=== PATIENT | male | born 1985 | race Caucasian/White ===

== ENCOUNTER 2021-02-26 07:00 | Emergency (ER) | payer OTHER, SELFPAY ==
--- NOTE | ~2021-02-26 | XR_ITS ---
EXAMINATION: XR CHEST CLINICAL INFORMATION: Cough and SOB. COMPARISON: None TECHNIQUE: Frontal view of the chest was obtained. FINDINGS: No significant abnormality is noted involving the heart, lungs, mediastinum, bony thorax or soft tissues. XR/XR chest 1V IMPRESSION: Unremarkable chest examination.
[2021-02-26 07:03] VITALS: BP 138/94; PULSE 91; RESP 18; TEMP 36.9; O2SAT 98; BMI 30.4
--- NOTE | 2021-02-26 07:22 | ED.ASTHMA ---
HPI - Asthma General Chief Complaint: Asthma Stated Complaint: DIFF BREATHING ASTHMA Time Seen by Provider: 02/26/21 07:22 Source: patient Mode of arrival: ambulatory Limitations: no limitations History of Present Illness HPI Narrative: 35-year-old male with a past medical history of asthma, and IV heroin use presents to the emergency department with 3 days of a productive cough. He states the cough is worse at night, and better during the day. He also states it is worse with heroin use. He reports shortness of breath, and states he has been using his rescue inhaler often and he states that yesterday he had to use his daughters nebulizer (albuterol). He states that the symptoms have been progressively worsening over the past 3 days. He also reports chest discomfort, only associated with his cough. He denies abdominal pain, fevers, chills, recent sick contacts, changes in bowel habits, weakness, headaches. MD complaint: asthma attack and shortness of breath Onset (ago): day(s) (3) Severity: mild Associated symptoms: productive cough Related Data Previous Rx's Medication Instructions Recorded albuterol sulfate 90 mcg/actuation 2 inh INHALATION QID PRN 90 Days 02/20/21 aerosol inhaler (ProAir HFA) #8.5 g albuterol sulfate 90 mcg/actuation 2 puff INHALATION QID PRN #6.7 g 02/26/21 aerosol inhaler benzonatate 100 mg capsule 100 mg PO TID 5 Days #15 cap 02/26/21 (Milagros Prater) prednisone 20 mg tablet 60 mg PO DAILY 4 Days #12 tab 02/26/21 Allergies Allergy/AdvReac Type Severity Reaction Status Date / Time No Known Allergies Allergy Unverified 02/17/20 15:26 Review of Systems Review of Systems: Constitutional : No Fever, No Chills ENT/Mouth : positive oral swelling, No Hoarseness, No Swallowing Difficulty Cardiovascular : No Chest Pain, No SOB Respiratory : + Cough, + Sputum, No Wheezing, No Smoke Exposure, + Dyspnea/SOB Gastrointestinal : No Nausea, No Vomiting, No Diarrhea, No abdominal Pain Genitourinary : No Dysuria, No Urinary Frequency, No Hematuria Musculoskeletal : No joint pain, No Myalgias, No Joint Swelling Skin : No Skin Lesions, positive rash Neuro : No Weakness, No Numbness, No Headache Psych : No Anxiety/Panic, No Depression All other systems reviewed and are negative [facility] Past Medical History Medical History Asthma Social History Social History Patient Tobacco Use Status: Never used Tobacco Use of substances other than those prescribed or required for medical reasons: No Advance Directives: No Advance Directives Information Provided: No Physical Exam Vital Signs: Vital Signs: Last Vital Signs Temp 98.4 F 02/26/21 07:37 Pulse 82 02/26/21 08:15 Resp 18 02/26/21 07:37 BP 122/84 02/26/21 07:37 Pulse Ox 97 02/26/21 07:37 Body Mass Index 30.4 Appearance: Alert. Oriented X3. No acute distress. Eyes: Pupils equal, round and reactive to light. ENT: Pharynx normal. Neck: Normal inspection. Neck supple. CVS: Normal heart rate and rhythm. Pulses normal. Respiratory: No respiratory distress. Breath sounds bilateral end exp wheezes noted Abdomen: Soft and nontender. Skin: Skin warm and dry. Normal skin color. Normal skin turgor. Extremities: No lower extremity edema. No calf ttp Neuro: Oriented X 3. No motor deficit. No sensory deficit. Course Course Course Narrative: clear lungs now, no hypoxia, feels better stable for DC at this time - no chest pain he was wheezing doubt pneumonia/endocarditis/PE Reevaluation(s) Reevaluation #1: Upon re-evaluation patient is feeling better after 5 mg of albuterol treatment and p.o. prednisone. MDM - Asthma MDM Narrative Medical decision making narrative: This is a 35-year-old male past medical history of asthma, and IV heroin use presenting to the emergency department with 3 days of worsening productive cough, and shortness of breath. He states he has been using his rescue inhaler very frequently without relief. At this time labs, CXR, COVID swab, oral steroids ordered, he is not in resp distress no hypoxia suspect improvement in ED. Dispo per workup and improvement Lab Data Result diagrams: 02/26/21 08:55 Labs: Lab Results 02/26/21 02/26/21 Range/Units 07:28 08:55 Sodium Cancelled Potassium Cancelled Chloride Cancelled Carbon Dioxide Cancelled Anion Gap Cancelled BUN Cancelled Creatinine Cancelled Estim Creat Clear Calc Cancelled Estimated GFR Cancelled Random Glucose Cancelled Calcium Cancelled Magnesium Cancelled COVID-19 ([facility]) Negative (Negative) COVID-19 Clin Com See Note ECG Data Attestation: I personally reviewed and interpreted this ECG as follows: ECG interpretation date: 02/26/21 ECG interpretation time: 07:50 Prior ECG tracings: available for review Interpretation: Ventricular rate 83 IL interval normal QRS normal QT/QTC normal. Normal sinus rhythm. No ST elevations, no T-wave inversions. When compared to EKG from 12/06/2015 no evident changes. Discharge Plan Discharge Clinical Impression: Cough Asthma with acute exacerbation Qualifiers: Asthma severity: moderate Asthma persistence: persistent Qualified Code(s): J45.41 - Moderate persistent asthma with (acute) exacerbation Patient Disposition: Home, Self-Care Instructions: Asthma (ED), Acute Cough (ED) Additional Instructions: Use your rescue inhaler as needed. Taking medications as prescribed. Follow-up with your PCP within the next few days. Stop using heroin. Present to the emergency department with new or worsening symptoms return to ED for any worsening symptoms or concerns NEGATIVE FOR COVID IN THE EMERGENCY DEPARTMENT Prescriptions: New benzonatate [Tessalon Perles] 100 mg capsule 100 mg PO TID 5 Days Qty: 15 RF: 0 albuterol sulfate 90 mcg/actuation HFA aerosol inhaler 2 puff inhalation QID PRN (Reason: shortness of breath or wheezing) Qty: 6.7 RF: 0 prednisone 20 mg tablet 60 mg PO DAILY 4 Days Qty: 12 RF: 0 No Action albuterol sulfate [ProAir HFA] 90 mcg/actuation HFA aerosol inhaler 2 inh inhalation QID PRN (Reason: shortness of breath or wheezing) 90 Days Qty: 8.5 RF: 0 Referrals: Po,Connie Hendrix MD [Primary Care Provider] - 2 days Stand Alone Forms: Work/School Release
--- NOTE | 2021-02-26 07:23 | ECG_ITS ---
Test Reason : CHEST PAIN Blood Pressure : / mmHG Vent. Rate : 083 BPM Atrial Rate : 083 BPM P-R Int : 128 ms QRS Dur : 088 ms QT Int : 388 ms P-R-T Axes : 060 065 046 degrees QTc Int : 455 ms Normal sinus rhythm RSR' or QR pattern in V1 suggests right ventricular conduction delay Abnormal ECG When compared with ECG of 06-DEC-2015 03:00, RSR' or QR pattern in V1 suggests right ventricular conduction delay Referred By: Viridiana Gillis Electronically Signed By:MALAIKA HAMILTON
[2021-02-26] MEDS: predniSONE 20 MG TABLET 60 MG PO (07:34)
[2021-02-26 07:37] VITALS: BP 122/84; PULSE 84; RESP 18; TEMP 36.9; O2SAT 97
--- NOTE | 2021-02-26 07:49 | PC.NURSE ---
Pt alert and oriented x4, vss, audible wheezes noted in BUL. Pt reports 3 days of a productive cough, the cough is worse at night, and better during the day. Pt states he is an IV heroin user and his cough is worse when he uses. Pt c/o shortness of breath chest pain with cough. He also reports using his inhaler a lot with occasion relief. He denies abdominal pain, no fevers, chills, dizziness or headaches. No other symptoms reported
[2021-02-26 07:56] LABS: COVID-19 Test Negative (Negative)
[2021-02-26] MEDS: Albuterol Sulfate (0.083%) 2.5 MG/3 ML VIAL.NEB 5 MG INHALE (08:14)
[2021-02-26 08:15] VITALS: PULSE 82; O2SAT 98
== END 2021-02-26 10:42 | disposition home or self-care (01) ==
PROVIDERS: Emergency Provider Emergency Medicine; PCP Internal Medicine
DX: J45.41 Moderate persistent asthma with (acute) exacerbation (principal); R05 Cough; F11.90 Opioid use, unspecified, uncomplicated; Z79.899 Other long term (current) drug therapy; Z20.822 Contact with and (suspected) exposure to COVID-19
CPT/HCPCS: 36415; 71045; 87635; 93005; 94640; 94644; 99284

== ENCOUNTER 2022-09-02 08:49 | Emergency (ER) | payer OTHER, SELFPAY ==
[2022-09-02 08:51] VITALS: BP 155/98; PULSE 110; RESP 19; TEMP 36.6; O2SAT 98; BMI 28.8
--- NOTE | 2022-09-02 09:09 | ED.GENADULT ---
HPI - General Adult General Chief complaint: Upper Respiratory Symptoms Stated complaint: sore throat Time Seen by Provider: 09/02/22 09:01 Source: patient and RN notes reviewed Mode of arrival: ambulatory Limitations: no limitations History of Present Illness HPI narrative: This is a [id number]-male, with a past medical history of asthma and IVDA, who presents today with complaints of swelling under his tongue since yesterday. Patient states that he noticed on , he has some swelling surrounding his mouth. He states that he woke up this morning and the floor of his mouth became swollen and itchy. He states that he has had no recent illnesses, new foods, medications. He admits that he uses IV fentanyl, last used yesterday. Patient states that he has had no fevers or chills. No other complaints or concerns. MD complaint: Swelling under tongue Onset (ago): day(s) Severity: mild Pain Consistency: intermittent Relieving factors: none Exacerbating factors: none Associated symptoms: denies other symptoms Treatments prior to arrival: none Related Data Previous Rx's Medication Instructions Recorded albuterol sulfate 90 mcg/actuation 2 puff inhalation QID PRN 02/26/21 aerosol inhaler shortness of breath or wheezing #6.7 grams benzonatate 100 mg capsule 100 mg PO TID 5 days #15 caps 02/26/21 (Milagros Prater) prednisone 20 mg tablet 60 mg PO DAILY 4 days #12 tabs 02/26/21 albuterol sulfate 90 mcg/actuation 2 inh inhalation QID PRN shortness 05/21/21 aerosol inhaler (ProAir HFA) of breath or wheezing 90 days #8.5 grams Allergies Allergy/AdvReac Type Severity Reaction Status Date / Time No Known Allergies Allergy Verified 09/02/22 08:50 Review of Systems Review of Systems: Yes all other systems are reviewed and are negative PMFSH Past Medical History Attestation statement: The following information was validated with the patient. Medical History Asthma Generalized anxiety disorder Obesity (BMI 30-39.9) Polysubstance abuse Surgical History H/O left knee surgery Social History Social History Patient Tobacco Use Status: Never used Tobacco Physical Exam ED Vital Signs: Vital Signs - 24 hr 09/02/22 08:51 Temperature 98 F Pulse Rate 110 H Respiratory Rate 19 Blood Pressure 155/98 H Pulse Oximetry 98 Oxygen Delivery Method Room Air BMI result Body Mass Index 28.8 General: Awake, alert, and oriented X3. No acute distress. HEENT: Normal inspection, Oral pharynx with no tonsilar erythema, edema or exudates, airway is patent. Normal inspection of the tongue. at the base of the frenulum, there is an cartilaginous anatomical variant, floor of mouth is nonedematous, nonerythematous, nontender. CVS: Normal heart rate and rhythm. Pulses normal. S1S2 regular, no murmurs, rubs or gallops. Respiratory: No respiratory distress, Lungs clear to auscultation bilaterally, no wheezes, rhonchi or rales. Skin: Warm, dry, no rashes noted to exposed skin. Normal skin color. Normal skin turgor. Extremities: Normal inspection. Neuro: Oriented X 3. No motor deficit. No sensory deficit. Medical Decision Making Medical Decision Making [facility] Narrative: 37 yo M, with a past medical history of asthma and IVDA, who presents today with complaints of swelling and itchiness under his tongue since yesterday. VSS, patient with no SOB, fevers, or difficulty swallowing. On exam, patient has anatomical variant at the base of his frenulum, with no edema, erythema of the floor of the mouth. Airway is patent. Lungs clear to auscultation bilaterally. Patient actively using IV drugs, he denies any new foods or medications. His symptoms are likely due to possible contact with something he's allergic to, whether that was something that his drugs was cut with. Patient's symptoms are improving. Educated patient to take benadryl as this may help with the minimal swelling that persists. Given precautions of when to return. Patient understands and agrees with plan. Differential Diagnosis Differential Diagnoses: The differential diagnosis associated with the presentation includes allergic angioedema ludwigs angina, pharyngitis, strep pharyngitis, allergic reaction, Discharge Plan Discharge Clinical Impression: Allergic angioedema Patient Disposition: Home, Self-Care Instructions: Angioedema (ED) Additional Instructions: You likely were in contact with something that caused an allergic reaction. Avoid using IV drugs as this may be the source of the allergic reaction. Your symptoms are improving which is reassuring. Please take benadryl as needed for symptoms. If you develop any fevers, difficulty swallowing, or difficulty breathing, immediately return for re-evaluation. Follow up with your primary care physician. Prescriptions: No Action albuterol sulfate [ProAir HFA] 90 mcg/actuation HFA aerosol inhaler 2 inh inhalation QID PRN (Reason: shortness of breath or wheezing) 90 Days Qty: 8.5 0RF benzonatate [Tessalon Perles] 100 mg capsule 100 mg PO TID 5 Days Qty: 15 0RF albuterol sulfate 90 mcg/actuation HFA aerosol inhaler 2 puff inhalation QID PRN (Reason: shortness of breath or wheezing) Qty: 6.7 0RF prednisone 20 mg tablet 60 mg PO DAILY 4 Days Qty: 12 0RF
[2022-09-02 09:21] LABS: IDNOW Serial# 08D9AD1C; Strep A Nucleic Acid Negative (Negative)
[2022-09-02 09:43] LABS: Influenza A PCR NEGATIVE (Negative); Influenza B PCR NEGATIVE (Negative); Resp Syncy Virus RNA Qual PCR NEGATIVE (Negative); SARS COV2 PCR INHOUSE NEGATIVE (Negative)
== END 2022-09-02 09:28 | disposition home or self-care (01) ==
PROVIDERS: Emergency Provider Emergency Medicine; PCP Internal Medicine
DX: J02.8 Acute pharyngitis due to other specified organisms (principal); L50.0 Allergic urticaria; Z20.822 Contact with and (suspected) exposure to COVID-19; Z20.828 Contact with and (suspected) exposure to other viral communicable diseases; Z79.899 Other long term (current) drug therapy
CPT/HCPCS: 0241U; 87651; 99283